=== PATIENT | male | born 1960 | race Two or more races ===

== ENCOUNTER → 2020-03-18 | Outpatient (CLI) | payer OTHER | END | disposition home or self-care (01) | LOC: ECT 11:47 | DX: F33.2 Major depressive disorder, recurrent severe without psychotic features (principal); Z79.899 Other long term (current) drug therapy; I10 Essential (primary) hypertension; E78.5 Hyperlipidemia, unspecified; Z88.0 Allergy status to penicillin ==

== ENCOUNTER 2020-03-20 06:38 | Outpatient (RCR) | payer OTHER ==
[2020-03-20] VITALS (8 sets, daily range): BP systolic 126–143; BP diastolic 67–91
[~2020-03-20] VITALS: Ht 188 cm; Wt 65.8 kg
[2020-03-20] MEDS ORDERED: Succinylcholine 20mg/ml 10ml vial ONE (06:39)
[2020-03-20] MEDS ORDERED: Methohexital Sodium Syr 100mg/10ml IVP ONE (06:39)
[2020-03-20] MEDS ORDERED: NS 500ML ONE (06:39)
[2020-03-23] VITALS (7 sets, daily range): BP systolic 125–135; BP diastolic 62–80
[2020-03-23] MEDS ORDERED: NS 500ML ONE (06:00)
[2020-03-23] MEDS ORDERED: Succinylcholine 20mg/ml 10ml vial ONE (06:00)
[2020-03-23] MEDS ORDERED: Methohexital Sodium Syr 100mg/10ml IVP ONE (06:00)
[2020-03-23] MEDS ORDERED: Atropine Sulfate 0.4mg/ml inj IVP PRN (09:44)
== END 2020-03-23 | disposition home or self-care (01) ==
LOC: ECT 06:38
DX: F33.2 Major depressive disorder, recurrent severe without psychotic features (principal); I10 Essential (primary) hypertension; E78.5 Hyperlipidemia, unspecified; K64.8 Other hemorrhoids
CPT/HCPCS: 90870; J0330; J7040

== ENCOUNTER 2020-03-25 04:44 | Outpatient (RCR) | payer OTHER ==
[2020-03-25] VITALS (7 sets, daily range): BP systolic 123–154; BP diastolic 67–91
[~2020-03-25] VITALS: Ht 188 cm; Wt 65.8 kg
[2020-03-25] MEDS ORDERED: Succinylcholine 20mg/ml 10ml vial ONE (04:45)
[2020-03-25] MEDS ORDERED: NS 500ML ONE (04:45)
[2020-03-25] MEDS ORDERED: Methohexita Syr 100mg/10ml IVP ONE (04:45)
[2020-03-27] VITALS (7 sets, daily range): BP systolic 121–139; BP diastolic 63–86
[2020-03-27] MEDS ORDERED: Succinylcholine 20mg/ml 10ml vial ONE (06:00)
[2020-03-27] MEDS ORDERED: NS 500ML ONE (06:00)
[2020-03-27] MEDS ORDERED: Methohexita Syr 100mg/10ml IVP ONE (06:00)
[2020-04-01] VITALS (7 sets, daily range): BP systolic 115–142; BP diastolic 68–83
[2020-04-03] VITALS (7 sets, daily range): BP systolic 125–145; BP diastolic 61–84
[2020-04-03] MEDS ORDERED: NS 500ML ONE (09:00)
[2020-04-03] MEDS ORDERED: Methohexita Syr 100mg/10ml IVP ONE (09:00)
[2020-04-03] MEDS ORDERED: Succinylcholine 20mg/ml 10ml vial ONE (09:00)
[2020-04-06] VITALS (7 sets, daily range): BP systolic 119–148; BP diastolic 51–85
[2020-04-06] MEDS ORDERED: NS 500ML ONE (09:00)
[2020-04-06] MEDS ORDERED: Methohexita Syr 100mg/10ml IVP ONE (09:00)
[2020-04-06] MEDS ORDERED: Succinylcholine 20mg/ml 10ml vial ONE (09:00)
[2020-04-06] MEDS ORDERED: Atropine Sulfate 0.4mg/ml inj IVP PRN (09:29)
[2020-04-08] VITALS (7 sets, daily range): BP systolic 109–157; BP diastolic 44–82
[2020-04-08] MEDS ORDERED: Succinylcholine 20mg/ml 10ml vial ONE (09:00)
[2020-04-08] MEDS ORDERED: Methohexita Syr 100mg/10ml IVP ONE (09:00)
[2020-04-08] MEDS ORDERED: NS 500ML ONE (09:00)
[2020-04-10] VITALS (7 sets, daily range): BP systolic 104–146; BP diastolic 55–92
[2020-04-10] MEDS ORDERED: Succinylcholine 20mg/ml 10ml vial ONE (06:00)
[2020-04-10] MEDS ORDERED: Methohexita Syr 100mg/10ml IVP ONE (06:00)
[2020-04-10] MEDS ORDERED: NS 500ML ONE (06:00)
[2020-04-13] VITALS (7 sets, daily range): BP systolic 125–142; BP diastolic 64–82
[2020-04-13] MEDS ORDERED: Etomidate 40mg/20ml Inj IV ONE ×2 (06:00→09:24)
[2020-04-13] MEDS ORDERED: Succinylcholine 20mg/ml 10ml vial ONE (06:00)
[2020-04-13] MEDS ORDERED: NS 500ML ONE (06:00)
[2020-04-13] MEDS ORDERED: Atropine Sulfate 0.4mg/ml inj IVP PRN (09:24)
[2020-04-15] VITALS (7 sets, daily range): BP systolic 128–157; BP diastolic 69–76
[2020-04-15] MEDS ORDERED: Caffeine Citrate 60mg/3ml vial ONE (06:00)
[2020-04-15] MEDS ORDERED: NS 500ML ONE (06:00)
[2020-04-15] MEDS ORDERED: Etomidate 40mg/20ml Inj IV ONE ×2 (06:00→09:34)
[2020-04-15] MEDS ORDERED: Succinylcholine 20mg/ml 10ml vial ONE (06:00)
[2020-04-15] MEDS ORDERED: Atropine Sulfate 0.4mg/ml inj IVP PRN (09:34)
[2020-04-15] MEDS ORDERED: Caffeine Citrate 60mg/3ml vial INJ ONE (09:34)
[2020-04-17] VITALS (7 sets, daily range): BP systolic 121–166; BP diastolic 65–78
[2020-04-17] MEDS ORDERED: Etomidate 40mg/20ml Inj IV ONE ×2 (08:58→09:00)
[2020-04-17] MEDS ORDERED: Caffeine Citrate 60mg/3ml vial INJ ONE (08:58)
[2020-04-17] MEDS ORDERED: Caffeine Citrate 60mg/3ml vial ONE (09:00)
[2020-04-17] MEDS ORDERED: Succinylcholine 20mg/ml 10ml vial ONE (09:00)
[2020-04-17] MEDS ORDERED: NS 500ML ONE (09:00)
[2020-04-22] VITALS (7 sets, daily range): BP systolic 117–130; BP diastolic 60–84
[2020-04-22] MEDS ORDERED: Succinylcholine 20mg/ml 10ml vial ONE (06:00)
[2020-04-22] MEDS ORDERED: NS 500ML ONE (06:00)
[2020-04-22] MEDS ORDERED: Caffeine Citrate 60mg/3ml vial INJ ONE (10:49)
[2020-04-22] MEDS ORDERED: Etomidate 40mg/20ml Inj IV ONE (10:49)
== END 2020-04-22 | disposition home or self-care (01) ==
LOC: ECT 04:44
DX: F33.2 Major depressive disorder, recurrent severe without psychotic features (principal)
CPT/HCPCS: 90870; J0330; J0706; J7040

== ENCOUNTER 2020-04-24 04:31 | Outpatient (RCR) | payer OTHER ==
[~2020-04-24] VITALS: Ht 188 cm; Wt 65.8 kg
[2020-04-24] MEDS ORDERED: Etomidate 40mg/20ml Inj IV ONE (04:32)
[2020-04-24] MEDS ORDERED: NS 500ML ONE (04:32)
[2020-04-24] MEDS ORDERED: Caffeine Citrate 60mg/3ml vial ONE (04:32)
[2020-04-24] MEDS ORDERED: Succinylcholine 20mg/ml 10ml vial ONE (04:32)
[2020-04-29] VITALS (7 sets, daily range): BP systolic 114–131; BP diastolic 61–84
[2020-04-29] MEDS ORDERED: NS 500ML ONE (06:00)
[2020-04-29] MEDS ORDERED: Caffeine Citrate 60mg/3ml vial ONE (06:00)
[2020-04-29] MEDS ORDERED: Succinylcholine 20mg/ml 10ml vial ONE (06:00)
[2020-04-29] MEDS ORDERED: Etomidate 40mg/20ml Inj IV ONE (06:00)
[2020-04-29] MEDS ORDERED: Atropine Sulfate 0.4mg/ml inj IVP PRN (11:34)
[2020-05-13] VITALS (7 sets, daily range): BP systolic 118–139; BP diastolic 54–87
[2020-05-13] MEDS ORDERED: NS 500ML ONE (09:00)
[2020-05-13] MEDS ORDERED: Etomidate 40mg/20ml Inj IV ONE (09:00)
[2020-05-13] MEDS ORDERED: Caffeine Citrate 60mg/3ml vial ONE (09:00)
[2020-05-13] MEDS ORDERED: Succinylcholine 20mg/ml 10ml vial ONE (09:00)
[2020-05-13] MEDS ORDERED: Caffeine Citrate 60mg/3ml vial INJ ONE (09:54)
[2020-05-13] MEDS ORDERED: Etomidate 40mg/20ml Inj IV SCH (09:54)
== END 2020-05-23 | disposition home or self-care (01) ==
LOC: ECT 04:31
DX: F33.2 Major depressive disorder, recurrent severe without psychotic features (principal)
CPT/HCPCS: 90870; J0330; J0706; J7040

== ENCOUNTER 2020-06-03 09:22 | Outpatient (RCR) | payer OTHER ==
[~2020-06-03] VITALS: Ht 188 cm; Wt 65.8 kg
[2020-06-03] VITALS (7 sets, daily range): BP systolic 125–151; BP diastolic 58–91
[~2020-06-03 09:22] MED LIST: Caffeine Citrate 60mg/3ml vial ONE; Etomidate 40mg/20ml Inj IV ONE; NS 500ML ONE; Succinylcholine 20mg/ml 10ml vial ONE
[2020-06-03] MEDS ORDERED: Caffeine Citrate 60mg/3ml vial INJ ONE (10:54)
[2020-06-03] MEDS ORDERED: Etomidate 40mg/20ml Inj IV SCH (10:54)
== END 2020-06-22 | disposition home or self-care (01) ==
LOC: ECT 09:22
DX: F33.2 Major depressive disorder, recurrent severe without psychotic features (principal)
CPT/HCPCS: 90870; J0330; J0706; J7040

== ENCOUNTER 2020-07-01 05:47 | Outpatient (RCR) | payer OTHER ==
[2020-07-01] VITALS (7 sets, daily range): BP systolic 129–158; BP diastolic 63–90
[~2020-07-01] VITALS: Ht 30.5 cm; Wt 0.5 kg
[2020-07-01] MEDS ORDERED: Succinylcholine 20mg/ml 10ml vial ONE (05:48)
[2020-07-01] MEDS ORDERED: Etomidate 40mg/20ml Inj IV ONE (05:48)
[2020-07-01] MEDS ORDERED: NS 500ML ONE (05:48)
[2020-07-01] MEDS ORDERED: Caffeine Citrate 60mg/3ml vial ONE (05:48)
== END 2020-07-23 | disposition home or self-care (01) ==
LOC: ECT 05:47
DX: F33.2 Major depressive disorder, recurrent severe without psychotic features (principal)
CPT/HCPCS: 90870; J0330; J0706; J7040

== ENCOUNTER 2020-07-29 05:14 | Outpatient (RCR) | payer OTHER ==
[~2020-07-29] VITALS: Ht 188 cm; Wt 65.8 kg
[2020-07-29] VITALS (7 sets, daily range): BP systolic 136–159; BP diastolic 57–104
[2020-07-29] MEDS ORDERED: Etomidate 40mg/20ml Inj IV ONE (05:15)
[2020-07-29] MEDS ORDERED: Caffeine Citrate 60mg/3ml vial ONE (05:15)
[2020-07-29] MEDS ORDERED: Succinylcholine 20mg/ml 10ml vial ONE (05:15)
[2020-07-29] MEDS ORDERED: NS 500ML ONE (05:15)
== END 2020-08-23 | disposition home or self-care (01) ==
LOC: ECT 05:14
DX: F33.2 Major depressive disorder, recurrent severe without psychotic features (principal)
CPT/HCPCS: 90870; J0330; J0706; J7040

== ENCOUNTER 2020-08-24 05:16 | Outpatient (RCR) | payer OTHER ==
[2020-08-24] VITALS (7 sets, daily range): BP systolic 124–191; BP diastolic 71–96
[~2020-08-24] VITALS: Ht 30.5 cm; Wt 0.5 kg
[2020-08-24] MEDS ORDERED: Succinylcholine 20mg/ml 10ml vial ONE (05:17)
[2020-08-24] MEDS ORDERED: NS 500ML ONE (05:17)
[2020-08-24] MEDS ORDERED: Etomidate 40mg/20ml Inj IV ONE (05:17)
[2020-08-24] MEDS ORDERED: Caffeine Citrate 60mg/3ml vial ONE (05:17)
[2020-08-24] MEDS ORDERED: Lidocaine 2% 100mg/5ml Carp IV PRN (10:24)
[2020-08-24] MEDS ORDERED: Atropine Sulfate 0.4mg/ml inj IVP PRN (10:24)
== END 2020-09-20 | disposition home or self-care (01) ==
LOC: ECT 05:16
DX: F33.2 Major depressive disorder, recurrent severe without psychotic features (principal); Z88.0 Allergy status to penicillin
CPT/HCPCS: 90870; J0330; J0706; J7040